=== PATIENT | male | born 1960 | race Caucasian/White ===

== ENCOUNTER 2017-08-09 06:51 | Emergency (ER) | payer BC ==
[2017-08-09 06:59] VITALS: RESP 18
[2017-08-09] MEDS ORDERED: SODIUM CHLORIDE 0.9% 1,000 ML IV STA (07:07)
[2017-08-09] MEDS ORDERED: ACETAMINOPHEN TAB 500 MG TAB PO STA (07:13)
--- NOTE | 2017-08-09 07:22 | ED ---
General Adult HPI - General Chief complaint: Nausea/Vomiting/Diarrhea Stated complaint: Flu Like Symptoms Time Seen by Provider: 08/09/17 07:09 Source: patient, EMS, RN notes reviewed Mode of arrival: EMS Limitations: no limitations - History of Present Illness Initial comments: Patient's a 57-year-old male presents to the emergency room today by EMS, the chief complaint of feeling dizzy and nauseous over the last 3 days. He states that last Tuesday he was outside doing yardwork. He states he was very hot outside. States he thinks it may be heat stroke. States she's been trying to drink but he has a history of BPH show he has to urinate frequently. Patient states felt nauseous one episode of dry heaving. No specific abdominal pain. Patient does admit to headache that has come on with some of the symptoms located in the front. States feels like a headache that is had in the past week been out in the sun too long. He denies any other complaints or symptoms at this time. Patient aware fever at triage. Patient denies any recent shortness of breath, chest pain, back pain, abdominal pain, numbness or tingling , dysuria or hematuria, constipation or diarrhea, visual changes, or any other complaints. - Related Data Home Medications Medication Instructions Recorded Confirmed Citalopram Hydrobromide [CeleXA] 20 mg PO DAILY 08/09/17 08/09/17 Fluticasone/Salmeterol [Advair 1 puff INHALATION RT-BID 08/09/17 08/09/17 100-50 Diskus] HYDROcodone/APAP 10-325MG [[place] 1 tab PO Q4HR PRN 08/09/17 08/09/17 10-325] Ibuprofen [Motrin] 800 mg PO Q6H PRN 08/09/17 08/09/17 Losartan Potassium [Cozaar] 100 mg PO DAILY 08/09/17 08/09/17 Previous Rx's Medication Instructions Recorded Levofloxacin [Levaquin] 500 mg PO DAILY 7 Days tab 08/09/17 Allergies Allergy/AdvReac Type Severity Reaction Status Date / Time No Known Allergies Allergy Verified 08/09/17 08:57 Review of Systems ROS Statement: Those systems with pertinent positive or pertinent negative responses have been documented in the HPI. ROS Other: All systems not noted in ROS Statement are negative. Past Medical History Additional Past Medical History / Comment(s): TBI History of Any Multi-Drug Resistant Organisms: None Reported Past Surgical History: Orthopedic Surgery Past Psychological History: Anxiety Smoking Status: Current some day smoker Past Alcohol Use History: Occasional Past Drug Use History: None Reported General Exam - General Exam Comments Initial Comments: General: The patient is awake and alert, in no distress, and does not appear acutely ill. Eye: Pupils are equal, round and reactive to light, extra-ocular movements are intact. No nystagmus. There is normal conjunctiva bilaterally. No signs of icterus. Ears, nose, mouth and throat: There are moist mucous membranes and no oral lesions. Neck: The neck is supple, there is no tenderness or JVD. Cardiovascular: There is a regular rate and rhythm. No murmur, rub or gallop is appreciated. Respiratory: Lungs are clear to auscultation, respirations are non-labored, breath sounds are equal. No wheezes, stridor, rales, or rhonchi. Gastrointestinal: Soft, non-distended, non-tender abdomen without masses or organomegaly noted. There is no rebound or guarding present. No CVA tenderness. Bowel sounds are unremarkable. Musculoskeletal: Normal ROM, no tenderness. Strength 5/5. Sensation intact. Pulses equal bilaterally 2+. Neurological: A&O x 3. CN II-XII intact, There are no obvious motor or sensory deficits. Coordination appears grossly intact. Speech is normal. Skin: Skin is warm and dry and no rashes or lesions are noted. Psychiatric: Cooperative, appropriate mood & affect, normal judgment. Limitations: no limitations Course Vital Signs 08/09/17 08/09/17 06:55 08:39 Temperature 101.9 F H 99.1 F Pulse Rate 86 81 Respiratory 18 18 Rate Blood Pressure 134/84 112/59 O2 Sat by Pulse 97 95 Oximetry EKG Findings - EKG Comments: EKG Findings:: EKG performed at 0716 shows normal sinus rhythm at 85 bpm. NC interval 142. QRS 88 QT/QTC 358/426. No acute ST changes. Medical Decision Making - Medical Decision Making Patient's labs been reviewed shows 16,000 white count. Sodium 127. Patient to have large amount of blood in his urinalysis. Patient does have a history of prostate cancer. He will be following up with his PCP and urologist. No sign of urinary tract infection. Patient's chest x-ray does show pneumonia on the left side. Patient had fever at triage. His vitals have improved after Tylenol. States feeling better. Case discussed and does not Tommie. Options were discussed with the patient about admission to the hospital for pneumonia and IV antibiotics. Patient's decline. States he would like to go home. Patient was given dose of Rocephin here in the ER will be discharged home on Levaquin advised to follow-up with the family doctor the next 2 days return if symptoms increase worsen. - Lab Data Result diagrams: 08/09/17 07:31 08/09/17 07:31 Lab Results 08/09/17 08/09/17 08/09/17 Range/Units 07:31 07:31 07:31 WBC 16.2 H (3.8-10.6) k/uL RBC 4.26 L (4.30-5.90) m/uL Hgb 13.0 (13.0-17.5) gm/dL Hct 37.6 L (39.0-53.0) % MCV 88.3 (80.0-100.0) fL MCH 30.7 (25.0-35.0) pg MCHC 34.7 (31.0-37.0) g/dL RDW 12.6 (11.5-15.5) % Plt Count 208 (150-450) k/uL Neutrophils % 88 % Lymphocytes % 4 % Monocytes % 7 % Eosinophils % 0 % Basophils % 0 % Neutrophils # 14.2 H (1.3-7.7) k/uL Lymphocytes # 0.6 L (1.0-4.8) k/uL Monocytes # 1.1 H (0-1.0) k/uL Eosinophils # 0.1 (0-0.7) k/uL Basophils # 0.0 (0-0.2) k/uL PT (9.0-12.0) sec INR (<1.2) APTT (22.0-30.0) sec Sodium 127 L (137-145) mmol/L Potassium 4.2 (3.5-5.1) mmol/L Chloride 90 L (98-107) mmol/L Carbon Dioxide 24 (22-30) mmol/L Anion Gap 13 mmol/L BUN 9 (9-20) mg/dL Creatinine 0.64 L (0.66-1.25) mg/dL Est GFR (CKD-EPI)AfAm >90 (>60 ml/min/1.73 sqM) Est GFR (CKD-EPI)NonAf >90 (>60 ml/min/1.73 sqM) Glucose 135 H (74-99) mg/dL Plasma Lactic Acid Griffin (0.7-2.0) mmol/L Calcium 8.1 L (8.4-10.2) mg/dL Total Bilirubin 1.4 H (0.2-1.3) mg/dL AST 43 (17-59) U/L ALT 58 (21-72) U/L Alkaline Phosphatase 74 (38-126) U/L Total Creatine Kinase 28 L (55-170) U/L CK-MB (CK-2) <0.2 (0.0-2.4) ng/mL CK-MB (CK-2) Rel Index Troponin I <0.012 (0.000-0.034) ng/mL Total Protein 6.3 (6.3-8.2) g/dL Albumin 3.8 (3.5-5.0) g/dL Amylase 37 (30-110) U/L Lipase 26 (23-300) U/L Urine Color Urine Appearance (Clear) Urine pH (5.0-8.0) Ur Specific [place] (1.001-1.035) Urine Protein (Negative) Urine Glucose (UA) (Negative) Urine Ketones (Negative) Urine Blood (Negative) Urine Nitrite (Negative) Urine Bilirubin (Negative) Urine Urobilinogen (<2.0) mg/dL Ur Leukocyte Esterase (Negative) Urine RBC (0-5) /hpf Urine Mucus (None) /hpf 08/09/17 08/09/17 08/09/17 Range/Units 07:31 07:31 08:07 WBC (3.8-10.6) k/uL RBC (4.30-5.90) m/uL Hgb (13.0-17.5) gm/dL Hct (39.0-53.0) % MCV (80.0-100.0) fL MCH (25.0-35.0) pg MCHC (31.0-37.0) g/dL RDW (11.5-15.5) % Plt Count (150-450) k/uL Neutrophils % % Lymphocytes % % Monocytes % % Eosinophils % % Basophils % % Neutrophils # (1.3-7.7) k/uL Lymphocytes # (1.0-4.8) k/uL Monocytes # (0-1.0) k/uL Eosinophils # (0-0.7) k/uL Basophils # (0-0.2) k/uL PT 9.9 (9.0-12.0) sec INR 1.0 (<1.2) APTT 26.8 (22.0-30.0) sec Sodium (137-145) mmol/L Potassium (3.5-5.1) mmol/L Chloride (98-107) mmol/L Carbon Dioxide (22-30) mmol/L Anion Gap mmol/L BUN (9-20) mg/dL Creatinine (0.66-1.25) mg/dL Est GFR (CKD-EPI)AfAm (>60 ml/min/1.73 sqM) Est GFR (CKD-EPI)NonAf (>60 ml/min/1.73 sqM) Glucose (74-99) mg/dL Plasma Lactic Acid Griffin 0.8 (0.7-2.0) mmol/L Calcium (8.4-10.2) mg/dL Total Bilirubin (0.2-1.3) mg/dL AST (17-59) U/L ALT (21-72) U/L Alkaline Phosphatase (38-126) U/L Total Creatine Kinase (55-170) U/L CK-MB (CK-2) (0.0-2.4) ng/mL CK-MB (CK-2) Rel Index Troponin I (0.000-0.034) ng/mL Total Protein (6.3-8.2) g/dL Albumin (3.5-5.0) g/dL Amylase (30-110) U/L Lipase (23-300) U/L Urine Color Yellow Urine Appearance Clear (Clear) Urine pH 7.0 (5.0-8.0) Ur Specific [place] 1.012 (1.001-1.035) Urine Protein 1+ H (Negative) Urine Glucose (UA) Negative (Negative) Urine Ketones 2+ H (Negative) Urine Blood Large H (Negative) Urine Nitrite Negative (Negative) Urine Bilirubin Negative (Negative) Urine Urobilinogen <2.0 (<2.0) mg/dL Ur Leukocyte Esterase Negative (Negative) Urine RBC 69 H (0-5) /hpf Urine Mucus Rare H (None) /hpf Disposition Clinical Impression: Community acquired pneumonia, Hematuria Disposition: HOME SELF-CARE Condition: Good Instructions: Community Acquired Pneumonia (ED) Additional Instructions: Please follow up with the family doctor over the next 2 days return to emergency room if symptoms increase or worsen. Please use antibiotic as prescribed. Please used Tylenol/ibuprofen for fever and aches and pains. Prescriptions: Levofloxacin [Levaquin] 500 mg PO DAILY 7 Days tab Is patient prescribed a controlled substance at d/c from ED?: No Referrals: Nonstaff,Physician [REFERRING] - 1-2 days Time of Disposition: 09:27
[2017-08-09] MEDS ORDERED: ONDANSETRON 4 MG/2 ML VIAL IVP STA (07:31)
[2017-08-09 07:57] LABS: Basophils % (A) 0 %; Eosinophils # (A) 0.1 k/uL (0-0.7); Eosinophils % (A) 0 %; HCT 37.6 % (39.0-53.0); Lymphocytes # (A) 0.6 k/uL (1.0-4.8); Lymphocytes % (A) 4 %; MCH 30.7 pg (25.0-35.0); MCHC 34.7 g/dL (31.0-37.0); MCV 88.3 fL (80.0-100.0); Mean Platelet Volume 6.4; Monocytes # (A) 1.1 k/uL (0-1.0); Monocytes % (A) 7 %; Neutrophils # (A) 14.2 k/uL (1.3-7.7); Neutrophils % (A) 88 %; Platelet Count 208 k/uL (150-450); RBC 4.26 m/uL (4.30-5.90); RDW 12.6 % (11.5-15.5); WBC 16.2 k/uL (3.8-10.6)
[2017-08-09 08:07] LABS: ALT 58 U/L (21-72); AST 43 U/L (17-59); Albumin 3.8 g/dL (3.5-5.0); Alkaline Phosphatase 74 U/L (38-126); Amylase 37 U/L (30-110); Anion Gap 13 mmol/L; Blood Urea Nitrogen 9 mg/dL (9-20); Calcium 8.1 mg/dL (8.4-10.2); Carbon Dioxide 24 mmol/L (22-30); Chloride 90 mmol/L (98-107); Glucose 135 mg/dL (74-99); Lipase 26 U/L (23-300); Potassium 4.2 mmol/L (3.5-5.1); Sodium 127 mmol/L (137-145); Total Bilirubin 1.4 mg/dL (0.2-1.3); Total Protein 6.3 g/dL (6.3-8.2)
[2017-08-09 08:13] LABS: Partial Thromboplastin Time 26.8 sec (22.0-30.0); Prothrombin Time 9.9 sec (9.0-12.0)
--- NOTE | 2017-08-09 08:16 | XR ---
EXAMINATION TYPE: XR chest 2V DATE OF EXAM: 08/09/2017 COMPARISON: NONE TECHNIQUE: PA and lateral views submitted. HISTORY: Fever and headache FINDINGS: No pneumothorax. Rib deformities on the left suggest previous trauma. Pleural thickening or tiny left effusion. No overt failure. Heart size normal. Hypertrophic and degenerative change of the spine. Th ere is a large area of consolidation involving the left upper lobe. IMPRESSION: 1. Large area of consolidation left upper lobe may been the basis of pneumonia. Follow to resolution to exclude underlying neoplasm.
[2017-08-09 08:19] LABS: Creatine Kinase 28 U/L (55-170)
[2017-08-09 08:31] LABS: Creatine Kinase MB <0.2 ng/mL (0.0-2.4); Troponin I <0.012 ng/mL (0.000-0.034)
--- NOTE | 2017-08-09 08:38 | CT ---
EXAMINATION TYPE: CT brain wo con DATE OF EXAM: 08/09/2017 COMPARISON: NONE HISTORY: Weakness, fatigue, headache and fever for [address] DLP: 1236 mGycm Automated exposure control for dose reduction was used. FINDINGS: Changes of chronic sinusitis noted. Atherosclerotic change of the vasculature. There is ill-defined d ensity along the right frontal lobe which is somewhat hyperdense. This may be artifactual. Small amou nt of hemorrhage cannot be excluded. Recommend repeat CT scan with thin slices. [id number] degenerative change. Faint periventricular low attenuation is nonspecific. IMPRESSION: 1. CANNOT EXCLUDE AN AREA OF HEMORRHAGE WITHIN THE RIGHT INFERIOR FRONTAL LOBE. THIS MAY BE ARTIFACTU AL. RECOMMEND REPEAT CT SCAN WITH THIN SLICE IMAGES, PARTICULARLY GIVEN THE ARTIFACT IN THE REGION. 2. DEGENERATIVE AND NONSPECIFIC WHITE MATTER CHANGES WHICH COULD BE CORRELATED WITH MRI CLINICALLY WARRANTED.
[2017-08-09] MEDS ORDERED: cefTRIAXone IN SWFI 1,000 MG/10 ML SYRINGE IVP STA (08:39)
[2017-08-09 09:01] LABS: Appearance,Urine Clear (Clear); Bilirubin,Urine Negative (Negative); Blood,Urine Large (Negative); Color,Urine Yellow; Glucose,Urine (UA) Negative (Negative); Ketones,Urine 2+ (Negative); Leukocyte Esterase,Urine Negative (Negative); Mucus,Urine Rare /hpf; Nitrite,Urine Negative (Negative); Protein,Urine 1+ (Negative); RBC,Urine 69 /hpf (0-5); Specific Gravity,Urine 1.012 (1.001-1.035); Urobilinogen,Urine <2.0 mg/dL (<2.0)
[2017-08-09 09:36] VITALS: BP 103/63; PULSE 75; TEMP 98.9
== END 2017-08-09 09:42 | disposition home or self-care (01) ==
LOC: EC 06:51
DX: J18.9 Pneumonia, unspecified organism (principal); R31.9 Hematuria, unspecified; R35.0 Frequency of micturition; R51 Headache; F41.9 Anxiety disorder, unspecified; F17.200 Nicotine dependence, unspecified, uncomplicated; Z79.51 Long term (current) use of inhaled steroids; Z79.899 Other long term (current) drug therapy
CPT/HCPCS: 36415; 93005; 80053; 82150; 82550; 82553; 83605; 83690; 84484; 85025; 85610; 85730; 81001; 87040; 87086; 71046; 70450; 99285; 96374; 96375; 96361; J2405; J0696